=== PATIENT | male | born 1975 | race African-American/Black ===

== ENCOUNTER 2020-07-25 10:12 | Outpatient (CLI) | payer BC | END 2020-07-25 10:13 | disposition home or self-care (01) | LOC: DTY/OP 10:12 | PROVIDERS: ATTEND Surgery | DX: E66.01 Morbid (severe) obesity due to excess calories (principal) | CPT/HCPCS: 97802 ==

== ENCOUNTER 2020-11-22 12:15 | Inpatient (IN) | payer BC ==
[2020-11-29 11:41] VITALS: BMI 48.6
[2020-12-02] MEDS ORDERED: Fentanyl 100 MCG/2 ML VIAL ONE ×4 (06:36→10:10)
[2020-12-02] MEDS ORDERED: Meperidine HCl/PF 25 MG/ML VIAL ONE (06:36)
[2020-12-02] MEDS ORDERED: Famotidine/PF 20 mg/2ml Vial ONE (06:36)
[2020-12-02] MEDS ORDERED: Bupivacaine 0.25% HCL 30 ML VIAL ONE ×2 (06:37)
[2020-12-02] MEDS ORDERED: EPINEPHrine 1 MG/ML AMP ONE (06:37)
[2020-12-02] MEDS ORDERED: Heparin 5,000 UNITS/ML VIAL ONE (06:50)
[2020-12-02] MEDS ORDERED: SUGAMMADEX SODIUM 500 MG/5 ML VIAL ONE (06:53)
[2020-12-02] MEDS ORDERED: Dextrose 50% Abboject 50 ML SYRINGE SLOW IVP PRN (08:48)
[2020-12-02] MEDS ORDERED: Promethazine HCl 25 MG/ML VIAL IM PRN ×2 (08:48→09:17)
[2020-12-02] MEDS ORDERED: diphenhydrAMINE 50 MG/ML VIAL IVP PRN ×2 (08:48→09:17)
[2020-12-02] MEDS ORDERED: hydrALAZINE 20 MG/ML VIAL SLOW IVP PRN (08:48)
[2020-12-02] MEDS ORDERED: Hydrocodone-Acetamin 15 ML UDCUP PO PRN (08:48)
[2020-12-02] MEDS ORDERED: Dextrose 5% in Water 1,000 ML IV PRN (08:48)
[2020-12-02] MEDS ORDERED: Ondansetron PF 4 MG/2 ML Vial IVP PRN ×2 (08:48→09:17)
[2020-12-02] MEDS ORDERED: diphenhydrAMINE 25 MG CAP PO PRN (09:17)
[2020-12-02] MEDS ORDERED: fentaNYL Citrate/PF 2,000 MCG in Sodium Chloride 0.9% 60 ML IV PRN (09:17)
[2020-12-02] MEDS ORDERED: diphenhydrAMINE 50 MG/ML VIAL IM PRN (09:17)
[2020-12-02] MEDS ORDERED: Zolpidem Tartrate 5 MG TAB PO PRN (09:17)
[2020-12-02] MEDS ORDERED: Naloxone HCl 0.4 mg/ml Vial IV PRN (09:17)
[2020-12-02] MEDS ORDERED: Communication Order-Pharmacy FS PRN (09:30)
--- NOTE | 2020-12-02 09:43 | OP ---
DATE OF PROCEDURE: 12/02/2020 PREOPERATIVE DIAGNOSIS: Morbid obesity. PROCEDURE PERFORMED: Laparoscopic sleeve gastrectomy, esophagogastroscopy. INDICATIONS: The patient is a 45-year-old male, morbidly obese, who has attempted multiple weight loss programs without success. FINDINGS: 38-[place] bougie used. DESCRIPTION OF PROCEDURE: After informed consent was obtained, patient was taken to the operating room, given general endotracheal anesthesia, placed in the supine position. Abdomen was prepped and draped in usual fashion. Local anesthesia was infiltrated subcutaneously and deep, and a 12 mm port incision was made approximately 8 inches below xiphoid, slight to the left. Veress needle inserted. Drop test performed. Pneumoperitoneum was created to a volume of 2 L of carbon dioxide. Utilizing a bladeless 12 mm trocar and 0-degree laparoscope, direct visual entry into the abdominal cavity was performed. Pneumoperitoneum was created to a pressure of 15 mmHg. The patient placed in a steep reverse Trendelenburg position. Mp liver retractor inserted, left lobe of the liver retracted superiorly. The pylorus identified, and a 12 mm port placed on the right beneath it and two 12s were placed left subcostal. The omentum was taken off the greater curvature 5 cm from the pylorus utilizing the LigaSure. Short gastrics divided with LigaSure. Left crura defined with ligature. 38-[place] [employer] bougie inserted, directed into the antrum. The linear 60 mm green load stapler used to divide the antrum to the bougie, then two golds were used, then a series of blues to the angle of His. Intraoperative endoscopy was performed. The video endoscope was inserted under direct vision, advanced into the sleeve. The staple line inspected. There was no bleeding. Staple line then tested by inflating the stomach with pressurized air and water. There was no air leak. Stomach decompressed. Scope removed. Remnant stomach removed from the abdomen through the left lateral port site. The fascia closed with 0 Vicryl suture in the GraNee needle. Trocars and retractors were removed. Hemostasis was assured. Skin closed with interrupted 4-0 Rapide. Dermabond applied. The patient tolerated the procedure well and transferred to Recovery in good condition. Sponge and needle count verified, correct x2. Job ID: [id number]
[2020-12-02] MEDS ORDERED: Dexamethasone 20 MG/5 ML VIAL ONE (10:15)
[2020-12-02] MEDS ORDERED: PROPOFOL 200 MG/20 ML VIAL ONE (10:15)
[2020-12-02] MEDS ORDERED: Lidocaine 1% PF 5 ML VIAL ONE (10:15)
[2020-12-02] MEDS ORDERED: Rocuronium Bromide 10 MG/ML (10ML VIAL) ONE (10:15)
[2020-12-02] MEDS ORDERED: PHENYLEPHRINE-NS 100 MCG/ML 10 ML SYRINGE ONE (10:15)
[2020-12-02] MEDS ORDERED: Metoclopramide HCl 10 MG/2 ML VIAL ONE (10:15)
[2020-12-02] MEDS ORDERED: Ondansetron PF 4 MG/2 ML Vial ONE (10:15)
[2020-12-02] MEDS ORDERED: Ketorolac Tromethamine 30 MG/ML VIAL ONE (10:15)
[2020-12-02] MEDS ORDERED: hydrALAZINE 20 MG/ML VIAL ONE (10:30)
[2020-12-02] MEDS: D5 1/2 NS w/20 mEq KCL 1,000 ML IV SCH ×3 (12:12→20:08)
[2020-12-02] MEDS: Pantoprazole 40 MG VIAL IVP SCH (13:54)
[2020-12-02] MEDS: Enoxaparin Sodium 40 MG/0.4 ML SYRINGE SC SCH (13:54)
[2020-12-02] MEDS: Ketorolac Tromethamine 30 MG/ML VIAL IVP SCH ×3 (14:50→20:07)
[2020-12-02] MEDS ORDERED: Chloraseptic Spray 180 ml Bottle PO PRN (15:25)
[2020-12-02] MEDS: CEFAZOLIN 2 GM in Premix Bag 1 BAG IVPB SCH ×2 (15:50→23:19)
[2020-12-02 22:51] LABS: SARS-CoV-2 PCR by NAA Not Detected (NotDetected)
[2020-12-03] MEDS: D5 1/2 NS w/20 mEq KCL 1,000 ML IV SCH ×3 (00:52→08:59)
[2020-12-03] MEDS: Ketorolac Tromethamine 30 MG/ML VIAL IVP SCH ×2 (03:58→08:32)
[2020-12-03 06:19] LABS: #Lymphocytes 1.5 thou/uL (1.20-3.40); #Monocytes 1.3 thou/uL (0.11-0.59); #Neutrophils 12.1 thou/uL (1.40-6.50); %Eosinophils 0.1 % (0.0-10.0); %Lymphocytes 9.7 % (21.0-51.0); %Monocytes 8.9 % (0.0-10.0); %Neutrophils 81.1 % (42.0-75.0); Hemoglobin 12.2 g/dL (14.0-18.0); Mean Corpuscular HGB CONC 31.3 g/dL (32.0-36.0); Mean Corpuscular Hemoglobin 26.1 pg (27.0-31.0); Mean Corpuscular Volume 83.4 fL (78.0-98.0); Mean Platelet Volume 6.5 fL (7.4-10.4); Platelet Count 401 thou/uL (130-400); RBC Distribution Width 13.4 % (11.5-14.5); Red Blood Cell (RBC) Count 4.68 mill/uL (4.70-6.10); White Blood Cell (WBC) Count 14.9 thou/uL (4.8-10.8)
[2020-12-03 06:32] LABS: Anion Gap 13 mmol/L (10-20); BUN (Urea Nitrogen) 11 mg/dL (8.9-20.6); Calc. Creatinine Clearance 244 mL/min (70-130); Calcium 8.9 mg/dL (7.8-10.44); Carbon Dioxide 24 mmol/L (22-29); Chloride 105 mmol/L (98-107); Glucose 116 mg/dL (70-105); Potassium 4.5 mmol/L (3.5-5.1); Sodium 137 mmol/L (136-145)
[2020-12-03] MEDS: Pantoprazole 40 MG VIAL IVP SCH (08:30)
[2020-12-03] MEDS: Enoxaparin Sodium 40 MG/0.4 ML SYRINGE SC SCH (08:31)
[2020-12-03 11:03] VITALS: TEMP 98.3
[2020-12-03 11:30] VITALS: BP 142/94
--- NOTE | 2020-12-04 09:17 | DIS ---
DATE OF ADMISSION: 12/02/2020 DATE OF DISCHARGE: 12/03/2020 DISCHARGE DIAGNOSIS: Morbid obesity. PROCEDURES DURING ADMISSION: Laparoscopic sleeve gastrectomy. HOSPITAL COURSE: The patient was admitted, taken to the operating room, underwent sleeve gastrectomy. Postoperatively, he has done well. He is tolerating liquids well. He is discharged home on hydrocodone and Zofran. He will follow up with me in 2 weeks. Job ID: [id number]
== END 2020-12-03 13:20 | disposition home or self-care (01) | DRG 621 ==
LOC: EDSTATUS 11-27 12:15 → SURG A 12-02 06:06
PROVIDERS: ADMIT Surgery; ATTEND Surgery
PROC: 0DB64Z3 Excision of Stomach, Percutaneous Endoscopic Approach, Vertical (ICD-10-PCS; principal; 2020-12-02)
PROC: 0DJ08ZZ Inspection of Upper Intestinal Tract, Via Natural or Artificial Opening Endoscopic (ICD-10-PCS; 2020-12-02)
DX: E66.01 Morbid (severe) obesity due to excess calories (principal); Z20.822 Contact with and (suspected) exposure to COVID-19; G47.30 Sleep apnea, unspecified
CPT/HCPCS: 36415; 80048; 85025; 87635; 88307; C9113; J0171; J0360; J0690; J1100; J1644; J1650; J1885; J2175; J2405; J2704; J2765; J3010; J3480; S0020; S0028; U0003; U0005